=== PATIENT | female | born 1990 | race Caucasian/White ===

== ENCOUNTER 2017-04-10 23:18 | Emergency (ER) | payer OTHER ==
[~2017-04-10] VITALS: Ht 170.2 cm; Wt 59.0 kg
[2017-04-10 23:18] VITALS: BP_SYST 111
--- NOTE | 2017-04-10 23:18 | NUR ---
PT IN WAITNG ROOM AWAITING AVAILABLE BED. STABLE.
[2017-04-10 23:42] LABS: BILIRUBIN,URINE NEGATIVE (NEGATIVE); BLOOD, URINE NEGATIVE (NEGATIVE); CLARITY/URINE SL CLOUDY (CLEAR); COLOR,URINE YELLOW (YELLOW); GLUCOSE,URINE NEGATIVE (NEGATIVE); KETONES,URINE NEGATIVE (NEGATIVE); LEUKOCYTE ESTERASE ,URINE 1+ (NEGATIVE); NITRITE, URINE NEGATIVE (NEGATIVE); PROTEIN URINE NEGATIVE (NEGATIVE); UROBILINOGEN,URINE 0.2 (0.2-1.0)
--- NOTE | 2017-04-10 23:46 | NUR ---
Patient to ER bed 7 to gown for evaluation. Side rails up. Report given to OLEKSANDR AU.
[2017-04-10 23:50] LABS: BACTERIA,URINE MANY /HPF (None Seen); MUCUS,URINE None Seen /LPF (None Seen); RBC,URINE NONE SEEN /HPF (0-3); WBC,URINE 20-50 /HPF (0-3)
--- NOTE | 2017-04-10 23:50 | NUR ---
Patient AAO x4, sitting in bed c/o burning on urination x weeks with frequency and lower back pain 4/10 x 3 days. Denies nausea or vomiting. No acute distress noted. Will continue to monitor.
--- NOTE | 2017-04-11 00:15 | NUR ---
ER at bedside examining patient.
[2017-04-11 00:31] VITALS: BP_SYST 112
--- NOTE | 2017-04-11 00:31 | NUR ---
Patient given written and verbal discharge instructions and verbalizes understanding. ER MD discussed with patient the results and treatment provided. Patient in stable condition. ID arm band removed. Rx of Macrodantin, Ibuprofen, and Pyridium given. Patient educated on pain management and to follow up with PMD. Pain Scale 0/10. Opportunity for questions provided and answered.
--- NOTE | 2017-04-13 13:17 | NUR ---
Final C & S report reviewed identified organism is suseptible to Macrodantin as previously prescribed.
== END 2017-04-11 00:31 | disposition home or self-care (01) ==
LOC: SED 23:18
DX: N39.0 Urinary tract infection, site not specified (principal)
CPT/HCPCS: 81000-TC; 81025; 87086; 87186-TC; 99284

== ENCOUNTER 2017-05-05 23:07 | Emergency (ER) | payer OTHER ==
[~2017-05-05] VITALS: Ht 170.2 cm; Wt 59.0 kg
[2017-05-05 23:18] VITALS: BP_SYST 117
[2017-05-05 23:56] LABS: BILIRUBIN,URINE NEGATIVE (NEGATIVE); BLOOD, URINE 3+ (NEGATIVE); CLARITY/URINE CLOUDY (CLEAR); COLOR,URINE YELLOW (YELLOW); GLUCOSE,URINE NEGATIVE (NEGATIVE); KETONES,URINE NEGATIVE (NEGATIVE); LEUKOCYTE ESTERASE ,URINE 2+ (NEGATIVE); NITRITE, URINE NEGATIVE (NEGATIVE); PH,URINE 7.5 (5.0-8.0); PROTEIN URINE TRACE (NEGATIVE)
[2017-05-06 00:01] LABS: RBC,URINE >100 /HPF (0-3)
[2017-05-06 00:02] LABS: BACTERIA,URINE MODERATE /HPF (None Seen); MUCUS,URINE None Seen /LPF (None Seen); WBC,URINE 80-100 /HPF (0-3)
[2017-05-06] MEDS ORDERED: SULFAMETHOXAZOLE/TRIMETHOPR DS 1 TABLET PO ONE (00:45)
[2017-05-06 00:54] VITALS: BP_SYST 121
== END 2017-05-06 00:54 | disposition home or self-care (01) ==
LOC: SED 23:07
DX: N39.0 Urinary tract infection, site not specified (principal); F17.200 Nicotine dependence, unspecified, uncomplicated; Z71.6 Tobacco abuse counseling
CPT/HCPCS: 81000-TC; 87086; 99284

== ENCOUNTER 2018-01-02 22:02 | Emergency (ER) | payer MEDICAID, OTHER ==
[~2018-01-02] VITALS: Ht 170.2 cm; Wt 59.0 kg
[2018-01-02 22:22] VITALS: BP_SYST 121
[2018-01-02 23:57] LABS: BILIRUBIN,URINE NEGATIVE (NEGATIVE); BLOOD, URINE 1+ (NEGATIVE); CLARITY/URINE CLOUDY (CLEAR); COLOR,URINE YELLOW (YELLOW); GLUCOSE,URINE NEGATIVE (NEGATIVE); KETONES,URINE NEGATIVE (NEGATIVE); LEUKOCYTE ESTERASE ,URINE 2+ (NEGATIVE); NITRITE, URINE NEGATIVE (NEGATIVE); PH,URINE 5.5 (5.0-8.0); PROTEIN URINE 1+ (NEGATIVE); UROBILINOGEN,URINE 0.2 (0.2-1.0)
[2018-01-02 23:59] LABS: BACTERIA,URINE MODERATE /HPF (None Seen); MUCUS,URINE None Seen /LPF (None Seen); WBC,URINE >100 /HPF (0-3)
[2018-01-03 00:55] VITALS: BP_SYST 125
== END 2018-01-03 00:55 | disposition home or self-care (01) ==
LOC: SED 22:02
DX: N39.0 Urinary tract infection, site not specified (principal)
CPT/HCPCS: 81000-TC; 81025; 87086; 87186-TC; 99284